=== PATIENT | female | born 1970 | race Caucasian/White ===

== ENCOUNTER 2019-05-13 02:57 | Emergency (ER) | payer BC ==
[2019-05-13] MEDS ORDERED: Pantoprazole 40 mg EC Tab PO STA (03:45)
[2019-05-13] MEDS ORDERED: Pantoprazole 40 mg EC Tab PO ONE (03:53)
[2019-05-13 04:23] LABS: % BASOPHILS 0.3 % (0.0-2.0); % EOSINOPHILS 1.6 % (0.0-5.0); % LYMPHOCYTES 17.5 % (20.0-50.0); % MONOCYTES 5.6 % (2.0-10.0); EOSINOPHILE ABSOLUTE 0.1 Th/cmm (0.1-0.4); HEMATOCRIT 44.6 % (41.0-60); LYMPHOCYTE ABSOLUTE 1.3 Th/cmm (1.5-3.0); MEAN CELL VOLUME 88.2 fl (81-100); MEAN CORPUSCULAR HEMOGLOBIN 29.6 pg (27.0-31.0); MEAN CORPUSCULAR HGB CONC 33.5 pg (28.0-36.0); MONOCYTE ABSOLUTE 0.4 Th/cmm (0.3-1.0); NEUTROPHILE ABSOLUTE 5.7 Th/cmm (1.8-8.0); PLATELET COUNT 226 Th/cmm (150-400); RED BLOOD COUNT 5.06 Mil/cmm (3.80-5.10); RED CELL DISTRIBUTION WIDTH 12.1 % (11.5-20.0); WHITE BLOOD COUNT 7.5 Th/cmm (4.8-10.8)
[2019-05-13 04:50] LABS: AMPHETAMINE URINE NEGATIVE (NEGATIVE); BARBITURATES URINE NEGATIVE (NEGATIVE); BENZODIAZEPINES QUAL URINE POSITIVE (NEGATIVE); CANNABINOID THC NEGATIVE (NEGATIVE); COCAINE METABOLITE QUAL URINE NEGATIVE (NEGATIVE); METHADONE URINE NEGATIVE (NEGATIVE); METHAMPHETAMINES QUAL URINE NEGATIVE (NEGATIVE); OPIATES (MORPHINE) QUAL. URINE NEGATIVE (NEGATIVE); PHENCYCLIDINE (PCP) URINE NEGATIVE (NEGATIVE); TRICYCLICS (TCA) QUAL. URINE NEGATIVE (NEGATIVE)
--- NOTE | 2019-05-13 05:02 | ER Physician Documentation ---
DATE OF SERVICE: IDENTIFICATION: Full code patient. A 48-year-old female patient. CHIEF COMPLAINT: She says she lives alone by herself. She was never . She has no children. She drove from her home here because this was the nearest hospital, half a mile and her main symptoms are that she was ALLERGIC TO BIAXIN and AZITHROMYCIN somewhere around 27 years ago, when she was given some medicine and she got better. Yesterday, she went to her doctor and she said she had some sinus problems. The doctor gave her Bactrim and around 10:00, she took Bactrim. After about 4-6 hours, she started having some cramps and pain in the back of the thighs and then she changed the story saying that she is having pain in the back of the leg also and she cannot move, but she was comfortably driving, peacefully over here and she came over here. She was seen by the nurse here. Vital signs were taken, temperature 98.6, pulse 66, respirations 20, blood pressure 136/97, and 97% saturation. Height 5 feet 7 inches, weighing 200 pounds, and we have sent some lab for it, and according to her, she has some allergic reaction. I do not see any rash on the body. HISTORY OF PRESENT ILLNESS: The patient took 2 Motrin x 3, almost 4 hours apart, and still according to her, there is absolutely no relief . She does not know the dosage; whether it is 200 mg, 400 mg, 600 mg, 800 mg. 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 She still has these aches and cramps. PAST MEDICAL HISTORY: History of hypothyroidism and she takes 75 mcg of Synthroid-type medication. She had a gallbladder, which was removed by laparoscopic cholecystectomy. FAMILY HISTORY: Unknown. She says she has some mild depression. She is under stress and this morning around 8:00, she went to the doctor and the doctor gave her Septra and she took only one Septra followed by this complaint that she is telling. SOCIAL HISTORY: Benign and negative. Not , does not smoke, does not drink, does not take any other medications. REVIEW OF SYSTEMS: EYES, NOSE, AND THROAT: No history of double vision, blurring, blindness. CENTRAL NERVOUS SYSTEM: No history of TIA, stroke, encephalitis, meningitis. PULMONARY: No history of pneumonia, TB, pulmonary embolism, COPD emphysema, bronchitis. She does not have any wheezing. She does not have any rales. She denies any chest pain. CARDIOVASCULAR: She denies any myocardial infarction, rheumatic fever, valvular heart disease. GASTROINTESTINAL: No complaint. No abdominal pain, no diarrhea, no constipation, no vomiting. No costovertebral angle tenderness. ENDOCRINE: She does not have any diabetes mellitus. She does not have any [place] syndrome. She never had this kind of symptoms over past 27 years and she came to the Emergency Room here at 3:00 in the morning of 05/13/2019, seen by the nurse and all of these vital signs, etc. were taken. She is ambulatory. Labs were put in, CBC, CPK, drug screen, basic metabolic panel, etc. to see if there is any drug allergy is there or CPK level has risen. If she has this thing without any rash etc., it is somewhat unusual. BONES AND JOINTS: No complaint. ONCOLOGICAL: Cancer bland, no cancer. The patient has no back pain, no other pain. In past, a cyst was removed from the left tendon and she is wearing some belt over there and she is wearing some sneakers. She is wearing half pant. She is lying comfortably. She smiles, she talks, and shades occasional tears also. PHYSICAL EXAMINATION: GENERAL: The patient appears to be awake, alert, oriented, not in any acute cardiorespiratory distress other than the one when she was asked, she says it and when I squeeze her thigh real hard, she hardly complained of any significant pain. Per the nurse, it is 8/10 in the lower lobe. She is a full code. She has no edema, no cyanosis. No deep vein thrombophlebitis. No evidence of any trauma seen. CHEST: Clear. Trachea being central. Fairly good air entry in both without any rales, rhonchi, or bronchial breathing. ABDOMEN: Soft, benign, and negative. No CVA tenderness. No evidence of any deep vein thrombophlebitis. No evidence of any Ordoñez catheter or anything else. CENTRAL NERVOUS SYSTEM: Within normal limits. She spent the whole daytime to take Motrin, but she does not know the dosage as I mentioned. CLINICAL IMPRESSION: The patient complains 1 tablet of Biaxin gave her all these symptoms, so we will check her CPK level to see if there is any evidence of myositis or muscle problem. We will get the drug screen done, and CBC, BMP done. I will give her some antiallergic medication, diphenhydramine hydrochloride, and for the severe pain, we will give her 30 mg IM Tramadol and Protonix 40 mg p.o. and prednisone is given for antiallergic action also. To prevent the side effect of prednisone, pantoprazole has been given to the patient and we will hopefully try and find out what is wrong with her. It is somewhat unusual symptom at usual time of unusual occurrence, more than 16-17 hours later on. She thought she could get better and usually allergies when you get it and you are severely allergic, the symptoms start within 1-2 hours or half an hour, but here it is a question of hours together, but we will see and once we get the lab, further treatment will be advised. At the present moment, I am giving her Benadryl, prednisone, pantoprazole, and 30 mg of Toradol because of severity of the symptoms giving the benefit of the doubt to the patient. The other problems that she has are: 1. Hypothyroidism. 2. Cyst removed from the left tendon. 3. History of cholecystectomy in the past. 4. ALLERGIC TO BIAXIN AND KEFLEX in the past. We will check the blood pressure one more time to record that. [facility]# [id number]
[2019-05-13 08:09] LABS: SODIUM SERUM 142 mEq/L (136-145)
[2019-05-13 08:10] LABS: ANION GAP 19.1 (7.0-16.0); BUN - UREA NITROGEN 11 mg/dL (7-25); CALCIUM SERUM 8.6 mg/dL (8.6-10.3); CHLORIDE 107 mEq/L (98-107); CREATININE - SERUM 0.9 mg/dL (0.6-1.2); GFR AFRICAN-AMERICAN > 60.0 ml/min (>90); GFR NON AFRICAN-AMERICAN > 60.0 ml/min; GLUCOSE 105 mg/dL (70-105); POTASSIUM SERUM 4.1 mEq/L (3.5-5.1)
== END 2019-05-13 05:33 | disposition home or self-care (01) ==
LOC: ER 02:57
DX: M79.652 Pain in left thigh (principal); M79.651 Pain in right thigh; T36.3X5A Adverse effect of macrolides, initial encounter; T36.1X5A Adverse effect of cephalosporins and other beta-lactam antibiotics, initial encounter; E03.9 Hypothyroidism, unspecified; Z90.49 Acquired absence of other specified parts of digestive tract; Y92.89 Other specified places as the place of occurrence of the external cause
CPT/HCPCS: 99284; 96372; 36415; 80307; 84443; 85025; 82550; 84439; 80048; J1885; Z7610